=== PATIENT | female | born 2000 | race Caucasian/White ===

== ENCOUNTER 2020-03-12 09:03 | Observation (INO) | payer MEDICAID, OTHER | END 2020-03-12 10:20 | disposition home or self-care (01) | DRG 566 | LOC: LDRP 09:03 | PROVIDERS: ADMIT Specialist; ATTEND Specialist | DX: O99.343 Other mental disorders complicating pregnancy, third trimester (principal); N13.30 Unspecified hydronephrosis; F31.9 Bipolar disorder, unspecified; F90.9 Attention-deficit hyperactivity disorder, unspecified type; Z3A.38 38 weeks gestation of pregnancy | CPT/HCPCS: 76818; 81002; G0378 ==

== ENCOUNTER 2020-03-18 18:00 | Inpatient (IN) | payer MEDICAID ==
[~2020-03-18] VITALS: Ht 154.9 cm; Wt 90.3 kg
[2020-03-18] MEDS ORDERED: LACT. RINGERS/OXYTOCIN 20UNITS 1,000 ML IV SCH (18:57)
[2020-03-18] MEDS ORDERED: WITCH HAZEL-GLYCERIN PAD TOP PRN (19:00)
[2020-03-18] MEDS ORDERED: LIDOCAINE 2%HCL (LOCAL ANESTH.) INJ 20ML MDV ID ONE (19:00)
[2020-03-18] MEDS ORDERED: DERMOPLAST 60ML BOTTLE TOP PRN (19:00)
[2020-03-18] MEDS ORDERED: PHISODERM TOP SOLN 240ML BTL TOP PRN (19:00)
[2020-03-18 19:42] LABS: Basophils # (auto) 0 10 ^3/uL (0-0.2); Basophils % (auto) 0.3 % (0.0-2.0); Eosinophils # (auto) 0.1 10 ^3/uL (0-0.8); Eosinophils % (auto) 0.7 % (0.0-7.0); Hematocrit 41.9 % (36.0-46.0); Hemoglobin 13.8 g/dL (12.2-16.2); Lymphocytes # (auto) 1.5 10 ^3/uL (0.4-5.4); Lymphocytes % (auto) 11.8 % (10.0-50.0); Mean Corpuscular Hemoglobin 30.3 pg (28.0-32.0); Mean Corpuscular Volume 91.7 fL (80.0-100.0); Monocytes # (auto) 0.7 10 ^3/uL (0-1.3); Monocytes % (auto) 5.5 % (0.0-12.0); Neutrophils # (auto) 10.5 10 ^3/uL (1.6-8.6); Neutrophils % (auto) 81.7 % (37.0-80.0); Nucleated Red Blood Cells % 0.2 %; Platelet Count (auto) 242 10^3/uL (140-450); Red Blood Cells 4.57 10^6/uL (4.0-5.20); Red Cell Distribution Width 14.5 % (11.8-14.3); White Blood Cell 12.8 10^3/uL (4.4-10.8)
[2020-03-18 19:46] LABS: Urine Bacteria NONE SEEN /hpf (None Seen); Urine Blood 2+ /uL (Negative); Urine Mucus FEW (None Seen); Urine Specific Gravity 1.019 (1.001-1.035); Urine WBC 37 /hpf (0 - 5)
[2020-03-18 19:57] LABS: INR 0.91 (0.9-1.15); Partial Thromboplastin Time 28.6 sec (23.64-32.05)
[2020-03-18 20:02] LABS: Albumin 2.5 g/dL (3.4-5.0); Calcium 8.3 mg/dL (8.5-10.1); Potassium 3.9 mmol/L (3.5-5.1)
[2020-03-18 20:05] LABS: BUN/Creatinine Ratio 13.6; Bilirubin, Total 0.3 mg/dL (0.2-1.0); Total Protein 6.9 g/dL (6.4-8.2)
[2020-03-18 20:43] LABS: Alcohol, Urine < 3.0 mg/dL (0-5); Amphetamine Screen, Urine NEGATIVE (NEGATIVE); Barbiturate Scree,Urine NEGATIVE (NEGATIVE); Benzodiazephine Screen, Urine NEGATIVE (NEGATIVE); Cannabinoid Screen, Urine NEGATIVE (NEGATIVE); Cocaine Screen, Urine NEGATIVE (NEGATIVE); Opiate Scree,Urine NEGATIVE (NEGATIVE); Phencyclidine Screen, Urine NEGATIVE (NEGATIVE)
[2020-03-18] MEDS ORDERED: ePHEDrine SULFATE 50 MG/ML AMP IV ONE (20:45)
[2020-03-18] MEDS ORDERED: fentaNYL 200mCg/100ml W ROPIVA 100 ML EPI SCH (20:45)
[2020-03-18] MEDS: LACTATED RINGER'S 1,000 ML IV SCH ×2 (21:51→22:05)
[2020-03-19] MEDS ORDERED: ALUM & MAG HYDROX-SIMETH LIQ(MAALOX) 30 ML PO ONE (02:15)
[2020-03-19] MEDS ORDERED: ACETAMINOPHEN 325 MG TAB PO ONE (04:15)
[2020-03-19 06:30] VITALS: BP 113/60
--- NOTE | 2020-03-19 06:30 | NUR ---
Ambulation: Patient OOB with standby assistance by RN. Patient ambulated to bathroom with steady gait. Patient unable to void. Stated she thought she had to void in the bed but doesn't feel the urge now. [facility] teaching provided with returned demonstration by patient. Clean gown provided and bed linen changed. Patient ambulated back to bed with steady gait and no distress noted. Assessment completed. Vital signs taken.
[2020-03-19] MEDS: ACETAMINOPHEN 325 MG TAB PO PRN ×2 (09:38→19:04)
[2020-03-19 10:30] VITALS: BP 116/58
[2020-03-19 15:00] VITALS: BP 92/54
--- NOTE | 2020-03-19 15:15 | NUR ---
Vital signs at 1500: BP 92/54 HR 74 temp 100.[address] West. Informed of vital signs at 1500 and 1030, and refused COVID swab upon admission. Verbalized understanding. Received orders fro Ancef 1gm Q 8 hours.
[2020-03-19 19:14] VITALS: BP 111/56
[2020-03-19] MEDS: ceFAZolin 1GM/50ML 50 ML IV SCH (21:36)
[2020-03-19 21:42] VITALS: BP 113/58
[2020-03-19] MEDS ORDERED: RHO (D) IMMUNE GLOBULIN 300 MCG INJ IM ONE (21:45)
--- NOTE | 2020-03-19 22:55 | NUR ---
THIS RN DISCUSSES POC FOR TELE PSYCH CONSULT DUE TO HX OF BIPOLAR DISORDER AND EXPLAINS WHAT TO EXPECT FROM PROCEDURE. PT VERBALIZES UNDERSTANDING AND REFUSES TELE PSYCH CONSULT.
[2020-03-19 23:07] VITALS: BP 113/58
[2020-03-20 05:07] LABS: RPR Non Reactive (Non Reactive)
[2020-03-20] MEDS: ceFAZolin 1GM/50ML 50 ML IV SCH (05:51)
[2020-03-20] MEDS ORDERED: LAMO25TA2 PO (06:01)
[2020-03-20] MEDS ORDERED: PREN-96 PO (06:02)
--- NOTE | 2020-03-20 06:10 | NUR ---
Crystal Stuart RN called Dr West. Informed patient's IV infiltrated and pt is requesting not have another IV placed. Updated on status, and vitals during shift. Verbalized understanding. Received order to stop Ancef.
--- NOTE | 2020-03-20 06:22 | NUR ---
SBAR from Crystal Stuart RN.
[2020-03-20 07:00] VITALS: BP 115/66
--- NOTE | 2020-03-20 08:00 | NUR ---
Dr West made rounds with RN. Updated on status, vitals signs, bleeding. Verbalized understanding. Received orders to dc home today. Addendum: 03/20/20 at 0958 by KERI ALVARADO, DAYANA Informed of tele psych consult, and social service consult regarding history of bipolar disease, not currently taking lamictal 25mg PO daily since she became because the patient ran out of the medication. Patient states she has had no symptoms of depression or cata, no history of personal harm and no current thoughts of personal harm. Patient refused tele psych consult. Dr West verbalized understanding. Received orders to stop lamictal, dc social service consult and tele psych consult.
[2020-03-20 11:00] VITALS: BP 111/56
--- NOTE | 2020-03-20 11:30 | NUR ---
Discharge: Discharge instructions given as ordered. All discharge paperwork reviewed with patient and significant other. Pt encouraged to follow up with [facility] Dr West at [facility] on March 25 as instructed. All questions and concerns addressed. Patient verbalized understanding. Medication reconciliation completed and copy given to patient. All required/requested vaccines given and copies of vaccinations given to patient. Patient encouraged to prepare to depart unit.
--- NOTE | 2020-03-20 11:55 | NUR ---
Discharge: Patient declined wheelchair, requested to ambulated to vehicle. Patient ambulated with steady gait with all personal belongings and discharge paperwork in hand, accompanied by staff and family member. No distress noted at time of departure, no adverse changes in status since initial assessment.
== END 2020-03-20 11:55 | disposition home or self-care (01) | DRG 560 ==
LOC: LDRP 18:00 → OBSVTOIN 18:43 → LDRP 18:46
PROVIDERS: ADMIT Specialist; ATTEND Specialist
PROC: 10E0XZZ Delivery of Products of Conception, External Approach (ICD-10-PCS; principal; 2020-03-19)
PROC: 0HQ9XZZ Repair Perineum Skin, External Approach (ICD-10-PCS; 2020-03-19)
PROC: 3E0R3BZ Introduction of Anesthetic Agent into Spinal Canal, Percutaneous Approach (ICD-10-PCS; 2020-03-19)
PROC: 00HU33Z Insertion of Infusion Device into Spinal Canal, Percutaneous Approach (ICD-10-PCS; 2020-03-19)
DX: O69.81X0 Labor and delivery complicated by cord around neck, without compression, not applicable or unspecified (principal); O99.344 Other mental disorders complicating childbirth; F31.9 Bipolar disorder, unspecified; Z37.0 Single live birth; Z3A.39 39 weeks gestation of pregnancy; F41.9 Anxiety disorder, unspecified; O70.0 First degree perineal laceration during delivery
CPT/HCPCS: 36415; 51702; 59025; 59409; 62282; 80053; 80307; 81001; 81002; 84112; 85025; 85610; 85730; 86592; 86850; 86870; 86900; 86901; 90384; 94762; 96361; 96366; 96372; 96374; G0378; J0690; J2590